=== PATIENT | female | born 1945 | race Caucasian/White ===

== ENCOUNTER → 2016-09-09 | Day surgery (SDC) | payer BC ==
[~2016-09-09] MED LIST: ATROPINE SULFATE 1% OPHT SOLN 2 ML BTL ONE; DEXAMETHASONE SOD PHOS 4 MG/ML VIAL ONE; EPINEPHrine HCL (1:1000) 1 MG/ML VIAL ONE; FLURBIPROFEN 0.03% OPHT SOLN 2.5 ML BTL ONE; HYALURONIDASE/LIDOCAINE/BUPIVACAINE 11 ML SYR TL ONE; LACTATED RINGER'S 1000 ML INJ 1,000 ML ONE; LIDOCAINE HCL 4% PF 5 ML AMP ONE; NEOMYCIN/POLYMYXIN/DEXAMETHASONE OPTH OINT 3.5 GM TUBE ONE; PHENYLEPHRINE HCL 2.5 % OPTH SOLN 15 ML BTL ONE; PROPOFOL 100 MG/10 ML INJ IV ONE; SODIUM CHLORIDE 0.9% INJ 10 ML ONE; TETRACAINE 0.5% OPTH SOLN 15 ML BTL ONE; TROPICAMIDE 1% OPHT SOLN 15 ML BTL ONE; ceFAZolin INJ 1,000 MG VIAL ONE
--- NOTE | 2016-09-22 07:48 | MP ---
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 PROCEDURE Pars plana vitrectomy right eye ANESTHESIA MAC SURGEON Donta Hawkins MD. COMPLICATIONS None PROCEDURE After the patient was given retrobulbar anesthesia, she was brought to the operating room and prepared and draped in the usual sterile fashion. A wire lid speculum was placed in the patient's right eye. 23-gauge vitrectomy cannulas were then placed in the lower temporal, supratemporal and supranasal quadrants 3 millimeters posterior to the corneoscleral limbus. Infusion cannula was placed lower temporally. Core vitrectomy was performed. There was already a posterior vitreous detachment and the vitrectomy was carried out as far as possible to the vitreous base which removed all the vitreous hemorrhage. There was subretinal hemorrhage most of which was centered temporally. It seemed to spare some of the macular area. Careful indirect ophthalmoscopy with scleral depression was then performed. No peripheral retinal breaks were noted. The three vitrectomy cannulas were then removed. Subconjunctival injections of dexamethasone and Ancef were placed. An atropine drop, Maxitrol ointment, patch and shield were then applied. The patient tolerated the procedure well. There were no complications. She will follow up tomorrow in our [place] office. Donta Hawkins MD TAB/DJL /11:49 AM /7:41 AM
== END | disposition home or self-care (01) ==
LOC: ESDC 12:51
PROVIDERS: ATTEND Ophthalmology Retina Specialist
DX: H43.11 Vitreous hemorrhage, right eye (principal); H35.3210 Exudative age-related macular degeneration, right eye, stage unspecified
CPT/HCPCS: 00145; 67036; J0171; J0690; J1100; J7120